=== PATIENT | male | born 1965 | race Caucasian/White ===

== ENCOUNTER → 2020-10-04 | Outpatient (CLI) | payer OTHER | LOC: ULTRA 09:05 | PROVIDERS: ATTEND Family Medicine | DX: N28.1 Cyst of kidney, acquired (principal); K76.0 Fatty (change of) liver, not elsewhere classified; R16.1 Splenomegaly, not elsewhere classified; R10.11 Right upper quadrant pain ==

== ENCOUNTER 2021-03-03 10:23 | Inpatient (IN) | payer OTHER ==
[~2021-03-03] VITALS: Ht 172.7 cm; Wt 127.5 kg
[2021-03-03 10:26] VITALS: BP 153/83
[2021-03-03] MEDS ORDERED: TRULICITY0.75 MG/0. SUBQ (10:53)
[2021-03-03] MEDS ORDERED: LISINOPRIL-HCT1 EAC1 PO (10:54)
[2021-03-03] MEDS ORDERED: METFORMIN HCL500 M1 PO (10:54)
[2021-03-03] MEDS ORDERED: NORVASC5 MG PO (10:55)
[2021-03-03] MEDS ORDERED: NEURONTIN 300M300 M2 PO (10:55)
[2021-03-03 11:50] LABS: ABSOLUTE NEUTROPHILS 6.4 thou/uL (1.4-8.2); BASOPHILS 0.5 % (0.0-2.0); CALCIUM 8.5 mg/dL (8.5-10.1); CREATININE 1.8 mg/dL (0.7-1.3); EOSINOPHILS 1.2 % (0.0-3.0); HEMATOCRIT 54.9 % (42.0-52.0); HEMOGLOBIN 17.8 gm/dL (14.0-18.0); LYMPHOCYTES 5.5 % (24.0-44.0); MCH 28.1 pg (26.0-34.0); MCHC 32.5 g/dL (28.0-37.0); MCV 86.4 fL (80.0-100.0); MONOCYTES 7.2 % (1.0-8.0); PLATELET COUNT 158 thou/uL (150-400); POLYS 85.6 % (36.0-66.0); POTASSIUM 3.8 mmol/L (3.5-5.1); RBC 6.35 mil/uL (4.50-6.00); WBC 7.5 thou/uL (4.0-11.0)
[2021-03-03 11:54] LABS: ALBUMIN 3.5 g/dL (3.4-5.0); TOTAL BILIRUBIN 1.1 mg/dL (0.2-1.0)
[2021-03-03 13:20] VITALS: BP 158/86
[2021-03-03 14:43] VITALS: BP 158/86
[2021-03-03 14:54] LABS: ALBUMIN 3.6 g/dL (3.4-5.0); TOTAL PROTEIN 7.2 g/dL (6.4-8.2)
[2021-03-03 14:59] VITALS: BP 127/69
--- NOTE | 2021-03-03 16:40 | NUR ---
Patient arrived to unit at approximately 1530. A&Ox4 and able to answer questions appropriately. to come by to verify home meds. Patient denies significant pain but states "it's at a 1 if I really think about it". IVF infusing on LFA. ABX infusing with no issues. Patient denies further needs. Steady on feet & calls as needed. Endorsed to charge nurse.
[2021-03-03 19:08] VITALS: BP 162/99
--- NOTE | 2021-03-04 01:07 | NUR ---
ASSUMED PT CARE AT 1900.PT WAS OBSERVED LYING IN BED WATCHING TV AT SHIFT CHANGE IN THE COMPLANY OF HIS .MEDS VERIFIED WITH .TRULICITY SENT TO PHARMACY BUT TOOK THE REST HOME.WOUND PIC ON ULCER TO L 5TH TOE DONE,IN CHART.WOUND CLEANED WITH NS/ZEROFOAM AND WARPPED WITH KERLIX. PT CONT ON IV ABX AND IVF.PT ABLE TO MAKE HIS NEEDS KNOWN.CALL LIGHT WITHIN REACH.
[2021-03-04 05:48] LABS: HEMATOCRIT 37.3 % (42.0-52.0); MCH 28.7 pg (26.0-34.0); MCHC 33.8 g/dL (28.0-37.0); MCV 84.9 fL (80.0-100.0); RBC 4.39 mil/uL (4.50-6.00); RDW 14.7 % (10.5-14.5)
[2021-03-04 05:59] LABS: CHOLESTEROL 150 mg/dL (<200); HDL CHOLESTEROL 28 mg/dL (>40); LDL CHOLESTEROL 90 mg/dL (<100); TC:HDL 5.4 Ratio (Not establshd); TRIGLYCERIDE 160 mg/dL (<150); VLDL 32 mg/dL (<40)
[2021-03-04 06:06] LABS: HEMOGLOBIN 12.6 gm/dL (14.0-18.0)
[2021-03-04 06:10] LABS: CALCIUM 8.2 mg/dL (8.5-10.1); CREATININE 1.5 mg/dL (0.7-1.3); MAGNESIUM 1.8 mg/dL (1.8-2.4); POTASSIUM 3.3 mmol/L (3.5-5.1)
[2021-03-04 07:40] VITALS: BP 153/87
[2021-03-04 11:22] VITALS: BP 153/87
[2021-03-04 16:09] VITALS: BP 166/103
[2021-03-04 20:39] VITALS: BP 155/91
--- NOTE | 2021-03-05 02:24 | NUR ---
LEFT FOOT NOTED TO BE SWELLING. DRSG IN PLACE. NO DRAINAGE NOTED.USES URINAL. NPO AFTER MIDNOC.PLAN FOR SURGERY TOMORROW.
[2021-03-05 04:06] LABS: GLYCOHEMOGLOBIN (HGB A1C) 8.5 % (4.8-5.6)
[2021-03-05 05:58] LABS: HEMATOCRIT 30.7 % (42.0-52.0); HEMOGLOBIN 10.7 gm/dL (14.0-18.0); MCH 29.6 pg (26.0-34.0); MCHC 34.9 g/dL (28.0-37.0); MCV 84.7 fL (80.0-100.0); RBC 3.62 mil/uL (4.50-6.00); RDW 14.5 % (10.5-14.5); WBC 4.5 thou/uL (4.0-11.0)
[2021-03-05 06:12] LABS: CALCIUM 8.1 mg/dL (8.5-10.1); CREATININE 1.2 mg/dL (0.7-1.3); MAGNESIUM 1.7 mg/dL (1.8-2.4); POTASSIUM 3.2 mmol/L (3.5-5.1)
[2021-03-05 07:21] VITALS: BP 150/97
--- NOTE | 2021-03-05 09:42 | NUR ---
A/O X 4. ROOM AIR. AD OLEGARIO. LEFT AC PIV WITH NS INFUSING @ 125 MLS/HR. AC HS BS 138 NO INSULIN GIVEN THIS MORNING. NPO SINCE MIDNIGHT FOR LEFT 5TH TOE I/D. PRE OP CALLED AND SURGERY IS SET FOR 1300.
[2021-03-05 15:26] VITALS: BP 145/87
[2021-03-05 16:33] VITALS: BP 160/96
--- NOTE | 2021-03-05 16:50 | NUR ---
Met with patient who admitted with cellulitis left foot. 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 He uses no assistive device. Resides in independent home with , all needs on one level. 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 Has been at employment for 2 [address]. PCP Dr Nieto. Sp with Dr Morillo who wants to inquire into benefits for home infusion ertapenem 1 gm. Faxed clinical to [facility]. Updated patient. He has never needed HH or home infusion in past.
[2021-03-05 19:07] VITALS: BP 165/106
--- NOTE | 2021-03-05 19:07 | HC ---
[facility] [place] [place] [address] CONSULTATION Name: MICHELLE GARCIA Room #: 433-I ADM IN M.R.#: [id number] Admission: 03/03/21 Attend Phys: Billy Gudino MD Discharge: Date of : 69 Report #: [id number] THIS REPORT FOR: cc: Yong Nieto MD, Neal A. MD Geha,Mikel Beck MD ~ DATE OF SERVICE: 03/03/2021 INFECTIOUS DISEASE CONSULTATION REASON FOR CONSULTATION: I was asked to evaluate concerning left fifth toe gangrene. HISTORY OF PRESENT ILLNESS: The patient is a 55-year-old with underlying history of diabetes and peripheral neuropathy, who developed increased swelling and erythema to his left fifth toe 4 days ago. He is not compliant with wearing footwear and walks around barefoot most of the time. Notices that he has stepped on foreign objects previously. Over the last 48 hours, he has noticed increased size of his wound to the left fifth toe. He has had chills without fever or sweats. Does not take his blood sugars. Denies any nausea, vomiting or diarrhea. No dysuria or frequency. He has significant peripheral neuropathy involving his feet. No history of cardiac disease. He is a nonsmoker. REVIEW OF SYSTEMS: Fourteen-point review of system was negative other than what has been described above. ALLERGIES: None known. MEDICATIONS: As noted on his MAR, which were reviewed. PAST MEDICAL HISTORY: Diabetes, peripheral neuropathy, hypertension, left Achilles repair. FAMILY HISTORY: Diabetes. SOCIAL HISTORY: Nonsmoker. Occasional alcohol. No HIV risk factors. 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 PHYSICAL EXAMINATION: GENERAL: He is afebrile and hemodynamically stable. He is alert, cooperative and pleasant, in no acute distress. Moderately obese. SKIN: Without rash or decubitus other than what will be described in his extremity examination. HEENT: Eyes without scleral icterus. Mouth without mucositis. NECK: Supple. No palpable adenopathy. LUNGS: Clear to auscultation. [facility] [address] [place] [address] CONSULTATION Name: MICHELLE GARCIA Room #: 433-I ADM IN M.R.#: [id number] Admission: 03/03/21 Attend Phys: Billy Gudino MD Discharge: Date of : 69 Report #: [id number] HEART: Regular without murmur, gallop or rub. ABDOMEN: Soft, nontender. No hepatosplenomegaly or mass. No CVA tenderness, no spine tenderness. EXTREMITIES: Left lower extremity with a gangrenous wound over the dorsum of his left fifth toe, which now has sausage deformity and erythema extending up to the both dorsum and plantar aspect of his forefoot and midfoot. No extension beyond the ankle. A 1+ edema in the foot. Pulses posterior tibial and dorsalis pedis were palpable, 4+. He had diminished capillary refill in his toes distally. Sensation was diminished in his feet, up to the ankle. There was a wound over the dorsum of the fifth toe, with purulence able to be expressed. He also had a small defect to the plantar aspect of his left foot, over the fifth metatarsal head region. NEUROLOGIC: Cranial nerves intact with strength in the upper and lower extremities, symmetrical and within normal limits. LABORATORY DATA: Reviewed. MICROBIOLOGY: Reviewed. IMAGING: X-rays of the foot reviewed. IMPRESSION: A 55-year-old with diabetes, peripheral neuropathy; presents with left fifth toe soft tissue diabetic infection with gangrenous changes. Also, has evidence of foreign body in the soft tissues of the plantar aspect of his forefoot, over the fifth metatarsal head. In addition, the patient has hypertension, malnutrition and presents now with acute kidney injury with a creatinine of 1.8. RECOMMENDATION: We will continue broad antibiotic coverage pending culture results. Feel the patient will require surgical intervention. With the extensive changes, he may end up with an amputation. Will also need debridement of the plantar aspect of his foot to explore for foreign body. We will await culture results and adjust antibiotics accordingly. <ELECTRONICALLY SIGNED> By: Mikel Morillo MD 03/05/21 [id number] Mikel Morillo MD /nt
--- NOTE | 2021-03-06 03:36 | NUR ---
Pt. rested quietly at intervals during the night when checked on during frequent rounds. He offers no c/o pain or discomfort. Wound vac is dry and intact to the little toe left foot. Up to the bathroom with stand by assistance and pt. voiding without difficulty.
[2021-03-06 06:26] LABS: HEMATOCRIT 31.2 % (42.0-52.0); HEMOGLOBIN 10.7 gm/dL (14.0-18.0); MCHC 34.1 g/dL (28.0-37.0); RBC 3.67 mil/uL (4.50-6.00); RDW 14.4 % (10.5-14.5); WBC 4.5 thou/uL (4.0-11.0)
[2021-03-06 06:36] LABS: CALCIUM 8.1 mg/dL (8.5-10.1); CREATININE 1.1 mg/dL (0.7-1.3); MAGNESIUM 1.7 mg/dL (1.8-2.4); POTASSIUM 3.3 mmol/L (3.5-5.1)
[2021-03-06 08:59] VITALS: BP 146/90
--- NOTE | 2021-03-06 10:23 | NUR ---
POST-OP ORDERS RECEIVED FOR WBAT WITH POST-OP SHOE. SPOKE WITH Pt WHO STATES HE HAS ALREADY BEEN UP WITHOUT DIFFICULTY BUT DID NOT HAVE THE POST-OP SHOE. SPOKE WITH NURSING ABOUT MAKING SURE ONE IS ORDERED. Pt DECLINING A FORMAL P.T. EVAL BUT SOUNDS LIKE HE IS MOVING WITHOUT DIFFCULTY
--- NOTE | 2021-03-06 13:17 | NUR ---
PT ALERT AND ORIETNED, DENIES PAIN. WOUND VAC IN PLACE WITH MIN OUTPUT. CONTINUE TO ADMIN IV ANTIBX. REPLETED k AND MAG THIS SHIFT. PT AMBULATING IN ROOM WITH POST OP SHOE ON. NO NEW CONCERNS. WILL CONTINUE TO MONITOR AND FOLLOW POC
--- NOTE | 2021-03-06 14:00 | NUR ---
Spoke with [facility] infusion out of pocket 1200 may have been met but as of now $353.70 weekly. Spoke with patient who wants to check outpatient infusion clinic in [place]. Sp with [facility] and faxed clinical for review. Patient later reports he rec call from his insurance he not in network with hospital and in network with [facility]. Sp with [facility] transfer center and faxed clinical possible bed at [facility].
[2021-03-06 16:00] VITALS: BP 142/94
[2021-03-06 18:52] VITALS: BP 166/96
[2021-03-06 22:18] VITALS: BP 156/97
--- NOTE | 2021-03-07 02:39 | NUR ---
ASSUMED PT CARE THIS PM. PT IS ALERT AND ORIENTED X4. PT HAS WOUND VAC IN PLACE.PT DID NOT C/O PAIN OR VERBALIZED ANY OTHER CONCERNS. MEDS WERE GIVEN PER EMAR ORDERS. PT ISO N RA. NO VISIBLE SIGNOF DITRESS WAS NOTED. FALL PRECAUTIONS IN PLACE. WILL CONTINUE TO MONITOR.
[2021-03-07 03:06] LABS: HEMATOCRIT 32.5 % (42.0-52.0); HEMOGLOBIN 11.1 gm/dL (14.0-18.0); MCH 28.6 pg (26.0-34.0); MCV 84.2 fL (80.0-100.0); RBC 3.87 mil/uL (4.50-6.00); RDW 14.3 % (10.5-14.5); WBC 5.2 thou/uL (4.0-11.0)
[2021-03-07 04:17] LABS: CALCIUM 7.8 mg/dL (8.5-10.1); CREATININE 1.1 mg/dL (0.7-1.3); MAGNESIUM 1.9 mg/dL (1.8-2.4); POTASSIUM 3.4 mmol/L (3.5-5.1)
[2021-03-07 07:58] VITALS: BP 164/87
--- NOTE | 2021-03-07 10:56 | NUR ---
WOUND CARE F/U; I WAS ASKED TO APPLY A WOUND VAC TODAY BY ARJUN HER NP. THE PATIENT IS TO BE DISCHARGED TODAY. NO S/S OF INFECTION SEEN. THE PATIENT DENIES PAIN. THE WOUND BED HAS TISSUE NON-VIABLE VS SUBCUTANEOUS FAT. THE WOUND MEASURES 1 X 2 X 0.3. APPLIED WOUND VAC/THE SEAL IS PATIENT.
[2021-03-07 16:05] VITALS: BP 157/94
--- NOTE | 2021-03-07 17:18 | NUR ---
PICC PLACED FOR HOME IV ABX
--- NOTE | 2021-03-07 17:44 | NUR ---
Spoke with [facility] infusion to [facility]ri out of pocket cost. Patient has $1200 out of pocket cost once met coverage at 100%. Updated patient plan home with home infusion. Olivia did teaching today. Faxed new antibioitc order to [facility]. inquired into 11 home health agencies who are either out of network, or cannot staff for home health care. Wound vac ordered to be delivered at hospital tomorrow. [facility] plan dc tomorrow. Transfer center called and bed avail for patient at [facility]. Declined due to dc in [place]
[2021-03-07 19:15] VITALS: BP 165/98
--- NOTE | 2021-03-08 03:01 | NUR ---
ASSUMED T CARE AT 1900.PT WAS OBSERVED LYING DOWN ON HIS BED WITH HIS EYES CLOSED AT SHIFT CHANGE.PT DENIED PAIN/N/V SO FAR.WOUND VAC IN PLACE TO HIS FIFTH L TOE,NO DRAINAGE NOTED IN THE CANNISTER.PT'S ABX CHANGED TO CEFTRIAXONE.PT PROGRESSING WELL TOWARDS DC GOALS.PT LOOKING FORWARD TO BE DC'D LATER IN THE DAY.
[2021-03-08 07:15] VITALS: BP 150/85
[2021-03-08 11:15] VITALS: BP 150/85
[2021-03-08 11:58] VITALS: BP 150/85
--- NOTE | 2021-03-08 13:59 | NUR ---
WOUND CARE F/U: I AM HERE TODAY TO EDUCATE THE PATIENT ABOUT THE WOUND VAC. I DISCUSSED ALL ASPECTS OF THE VAC FUNCTIONS AND ALARMS AND WHO TO CALL FOR PROBLEMS. THE PATIENT VERBALIZED UNDERSTANDING AND STATES HE FEEL COMFORTABLE WITH THE VAC.
[2021-03-08] MEDS ORDERED: CEFTRIAXONE2 G1 IVPB (14:54)
[2021-03-08] MEDS ORDERED: METFORMIN HCL500 M1 PO (14:55)
[2021-03-08 15:05] VITALS: BP 154/88
[2021-03-08 15:12] VITALS: BP 150/85
[2021-03-08 15:42] VITALS: BP 150/85
--- NOTE | 2021-03-08 17:04 | NUR ---
Patient rec wound vac. [facility] out of network but [facility] approved. [facility] are not in network. Spoke with [facility] wound clinic in [place] who reports they are in network with insurance. Faxed clinical they called patient in room to arrange an apt. [facility] [phone]. Faxed final orders to [facility] and [facility]. Confirmed with both they rec orders.
--- NOTE | 2021-03-09 09:51 | O ---
[facility] [place] [address] OPERATIVE REPORT Name: MICHELLE GARCIA Room #: 433-I [facility] IN M.R.#: [id number] Admission: 03/03/21 Attend Phys: Billy Gudino MD Discharge: 03/08/21 Date of : 69 Report #: [id number] THIS REPORT FOR: cc: Yong Nieto MD, Neal A. MD Abraham,Michael Taveras MD ~ DATE OF SERVICE: 03/05/2021 PREOPERATIVE DIAGNOSIS: Left small toe diabetic foot infection. POSTOPERATIVE DIAGNOSIS: Left small toe diabetic foot infection. PROCEDURE: Debridement and irrigation of left small toe with placement of wound VAC, 4 x 6 cm. SURGEON: Michael Paiz MD SEMI DRIVER: Tamara Carranza PA-C ANESTHESIA: LMA. TOURNIQUET TIME: 12 minutes. ESTIMATED BLOOD LOSS: Minimal. SPECIMENS: Cultures of the wound were taken and sent x2. CONDITION UPON LEAVING THE OR: Stable. INDICATIONS FOR PROCEDURE: The patient is a 55-year-old gentleman who has diabetes and bilateral lower extremity neuropathy and was admitted to the hospital over the weekend secondary to a wound over the dorsolateral aspect of his small toe on his left foot. This has gotten progressively worse with drainage, erythema and edema of the foot. X-ray and CT scan were performed, and after discussion with him regarding treatment options, he elected for debridement and irrigation of the wound with placement of a wound VAC. We did discuss that I would lean more towards a small toe amputation, as it was felt that this infection in the face of the some of the diabetes and neuropathy had a small chance of healing; however, he was adamant about no amputation at this point and so we elected to proceed with debridement and irrigation of the wound. DESCRIPTION OF PROCEDURE: Risks, benefits, alternatives, complications were discussed in detail with the patient including but not limited to risk of anesthesia, risk of damage to nerves, arteries and blood vessels, risk for continued infection and need for amputation or further debridement. Informed consent was obtained from the patient. Left foot was appropriately marked in [address] [address] OPERATIVE REPORT Name: MICHELLE GARCIA Room #: 433-I [facility] IN M.R.#: [id number] Admission: 03/03/21 Attend Phys: Billy Gudino MD Discharge: 03/08/21 Date of : 69 Report #: [id number] the preoperative holding area. IV Zosyn was given for preoperative antibiotics. He was brought to the operating room and placed in a supine position on the operating table. LMA anesthesia was induced without complication. A tourniquet was placed on the left calf. The left lower extremity was prepped and draped in a normal sterile fashion. Timeout was performed, properly identifying the patient and procedure as well as the instrumentation. All in the operating room in agreement. The left lower extremity was elevated and tourniquet was inflated. Tourniquet time was 12 minutes. The wound itself measured about 4 x 6 cm and there was obvious necrotic tissue within the center of the wound. The wound edges were cleaned up sharply with a 15 blade, the necrotic tissue was debrided with a combination of a knife and a rongeur and hemostat was used to spread the tissue in order to break up any loculations that might be present. Cultures of the tissue were taken and sent. The wound was thoroughly irrigated with Pulsavac lavage and a small wound VAC was applied. The patient tolerated this procedure well and went to recovery room under care of anesthesia postoperatively. <ELECTRONICALLY SIGNED> By: Michael Paiz MD 03/09/21 [id number] Michael Paiz MD /nt
== END 2021-03-08 18:45 | disposition home health service (06) | DRG 264 ==
LOC: ER 10:23 → EROBS 12:37 → 4S 12:37
PROVIDERS: Emergency Medicine; ADMIT Internal Medicine; ATTEND Internal Medicine
PROC: 0YBN0ZZ Excision of Left Foot, Open Approach (ICD-10-PCS; principal; 2021-03-05)
DX: E11.52 Type 2 diabetes mellitus with diabetic peripheral angiopathy with gangrene (principal); N17.0 Acute kidney failure with tubular necrosis; L03.116 Cellulitis of left lower limb; E44.1 Mild protein-calorie malnutrition; Z68.41 Body mass index [BMI] 40.0-44.9, adult; L97.921 Non-pressure chronic ulcer of unspecified part of left lower leg limited to breakdown of skin; E11.621 Type 2 diabetes mellitus with foot ulcer; E11.42 Type 2 diabetes mellitus with diabetic polyneuropathy; S91.342A Puncture wound with foreign body, left foot, initial encounter; Z20.822 Contact with and (suspected) exposure to COVID-19; Z79.4 Long term (current) use of insulin; Z79.84 Long term (current) use of oral hypoglycemic drugs; I10 Essential (primary) hypertension
CPT/HCPCS: 10195; 27000; 50010; 50101; 50366; 50386; 50643; 53078; 57091; 57103; 57179; 62110; 62900; 70005